=== PATIENT | female | born 1945 | race Caucasian/White ===

== ENCOUNTER 2018-05-03 22:16 | Inpatient (IN) | payer MEDICARE, BC ==
[2018-05-03] MEDS ORDERED: NACL 0.9% 3 ML SYG IV (23:30)
[2018-05-04 00:51] LABS: WHITE BLOOD COUNT 9.2 10^3/ul (4.8-10.8)
[2018-05-04 00:51] LABS: ADD MAN DIFF? NO; BASOPHILS % 0.3 % (0.0-2.0); EOSINOPHILS # 0.2 10^3/ul (0.0-0.5); EOSINOPHILS % 2.3 % (0.0-7.0); HEMATOCRIT 22.9 % (37.0-47.0); HEMOGLOBIN 7.1 g/dl (12.0-16.0); LYMPHOCYTES # 2.6 10^3/ul (0.8-2.9); LYMPHOCYTES % 28.2 % (15.0-51.0); MEAN CORPUSCULAR HEMOGLOBIN 26.5 pg (29.0-33.0); MEAN CORPUSCULAR VOLUME 85.4 fl (82.0-101.0); MEAN PLATELET VOLUME 11.3 fl (7.4-10.4); MONOCYTE # 0.5 10^3/ul (0.3-0.9); MONOCYTES % 5.7 % (0.0-11.0); NEUTROPHIL # 5.8 10^3/ul (1.6-7.5); NEUTROPHILS % 63.3 % (39.0-77.0); PLATELET COUNT 251 10^3/UL (140-415); RED BLOOD COUNT 2.68 10^6/ul (4.20-5.40); RED CELL DISTRIBUTION WIDTH 15.9 % (11.5-14.5)
[2018-05-04 01:10] LABS: PHOSPHORUS 3.5 mg/dl (2.5-4.9)
[2018-05-04 01:11] LABS: ALANINE AMINOTRANSFERASE 30 IU/L (13-69); ALBUMIN 2.7 g/dl (3.3-4.9); ALBUMIN/GLOBULIN RATIO 1.03; ALKALINE PHOSPHATASE 48 IU/L (42-121); ANION GAP 9 (8-16); ASPARTATE AMINO TRANSFERASE 21 IU/L (15-46); BILIRUBIN,INDIRECT 0.5 mg/dl (0-1.1); BILIRUBIN,TOTAL 0.5 mg/dl (0.2-1.3); BLOOD UREA NITROGEN 28 mg/dl (7-20); CALCIUM 8.7 mg/dl (8.4-10.2); CARBON DIOXIDE 29 mmol/L (21-31); CHLORIDE 109 mmol/L (97-110); CREATININE 0.76 mg/dl (0.44-1.00); GLUCOSE 105 mg/dl (70-220); POTASSIUM 3.8 mmol/L (3.5-5.1); SODIUM 143 mmol/L (135-144); TOTAL PROTEIN 5.3 g/dl (6.1-8.1)
[2018-05-04 01:39] LABS: HEMOGLOBIN A1C 6.7 % (0-5.9)
[2018-05-04] MEDS: PANTOPRAZOLE 40 MG INJ IV ×3 (02:40→17:48)
[2018-05-04] MEDS: SUCRALFATE 1 GM TAB PO ×3 (02:40→22:06)
[2018-05-04 06:37] LABS: INR 1.02; PROTIME 13.5 Sec (11.9-14.9); PT RATIO 1.1
[2018-05-04 06:38] LABS: PARTIAL THROMBOPLASTIN TIME 25.9 Sec (23.0-35.0)
[2018-05-04 06:49] LABS: IRON 102 ug/dl (35-150)
[2018-05-04 06:58] LABS: % IRON SATURATION 32 % SAT (22-52); TOTAL IRON BINDING CAPACITY 323 ug/dl (241-421)
[2018-05-04 07:05] LABS: FREE T3 3.19 pg/ml (2.77-5.27); FREE T4 (FREE THYROXINE) 0.97 ng/dl (0.78-2.44)
[2018-05-04 07:08] LABS: FERRITIN 31.4 ng/ml (11.1-264.0)
[2018-05-04 07:15] LABS: ABNORMAL IP MESSAGE 1; HEMATOCRIT 21.9 % (37.0-47.0); MEAN CORPUSCULAR HEMOGLOBIN 26.7 pg (29.0-33.0); MEAN CORPUSCULAR HGB CONC 31.1 g/dl (32.0-37.0); MEAN CORPUSCULAR VOLUME 85.9 fl (82.0-101.0); MEAN PLATELET VOLUME 12.4 fl (7.4-10.4); RED BLOOD COUNT 2.55 10^6/ul (4.20-5.40); RED CELL DISTRIBUTION WIDTH 15.9 % (11.5-14.5)
[2018-05-04 07:15] LABS: WHITE BLOOD COUNT 7.7 10^3/ul (4.8-10.8)
[2018-05-04 07:29] LABS: PLATELET COUNT 181 10^3/UL (140-415); POSITIVE DIFF @See below
[2018-05-04 07:33] LABS: ADD MAN DIFF? YES; HEMOGLOBIN 6.8 g/dl (12.0-16.0)
[2018-05-04 07:51] LABS: ANISOCYTOSIS 1+ (0-0); BAND NEUTROPHILS #M 0.3 10^3/ul (0.0-0.6); BAND NEUTROPHILS % (M) 5 % (0-4); EOSINOPHILS % (M) 2 % (0-7); HYPOCHROMASIA 2+ (0-0); LYMPHOCYTES % (M) 40 % (15-51); MICROCYTOSIS 1+ (0-0); MONOCYTE #M 0.5 10^3/ul (0.3-0.9); MONOCYTES % (M) 7 % (0-11); MYELOCYTES % (M) 1 % (0-0); PLATELET ESTIMATE NORMAL; REACTIVE LYMPHOCYTES #M 0.3 10^3/ul (0.0-0.0); REACTIVE LYMPHOCYTES% (M) 5 % (0-0); SEG NEUT #M 3.1 10^3/ul (1.6-7.5); SEGMENTED NEUTROPHILS (M) % 40 % (39-77); SMUDGE%M 5 % (0-0)
[2018-05-04 08:01] LABS: PATH REVIEW? YES
[2018-05-04] MEDS: NIFEdipine (XL) 30 MG TAB PO (08:19)
[2018-05-04] MEDS ORDERED: NON-FORMULARY/PATIENT OWN MED (Carvedilol* 6.25 MG) PO (09:00)
[2018-05-04] MEDS: LOSARTAN 50 MG TAB PO (09:00)
[2018-05-04] MEDS ORDERED: NON-FORMULARY/PATIENT OWN MED (Olmesartan Medoxomil (Benicar) 40 MG) PO (09:00)
[2018-05-04] MEDS: SOD CHLORIDE 0.9% 250 ML IV* (09:12)
[2018-05-04] MEDS ORDERED: PROPOFOL 200 MG INJ (15:38)
[2018-05-04 17:00] LABS: ADD MAN DIFF? NO; BASOPHILS % 0.2 % (0.0-2.0); EOSINOPHILS # 0.2 10^3/ul (0.0-0.5); HEMATOCRIT 27.5 % (37.0-47.0); HEMOGLOBIN 8.5 g/dl (12.0-16.0); LYMPHOCYTES # 2.4 10^3/ul (0.8-2.9); LYMPHOCYTES % 26.4 % (15.0-51.0); MEAN CORPUSCULAR HEMOGLOBIN 26.8 pg (29.0-33.0); MEAN CORPUSCULAR HGB CONC 30.9 g/dl (32.0-37.0); MEAN CORPUSCULAR VOLUME 86.8 fl (82.0-101.0); MEAN PLATELET VOLUME 10.6 fl (7.4-10.4); MONOCYTE # 0.5 10^3/ul (0.3-0.9); MONOCYTES % 5.5 % (0.0-11.0); NEUTROPHIL # 5.9 10^3/ul (1.6-7.5); NEUTROPHILS % 65.5 % (39.0-77.0); PLATELET COUNT 264 10^3/UL (140-415); RED BLOOD COUNT 3.17 10^6/ul (4.20-5.40); RED CELL DISTRIBUTION WIDTH 15.5 % (11.5-14.5)
[2018-05-04 17:20] LABS: ANION GAP 10 (8-16); BLOOD UREA NITROGEN 26 mg/dl (7-20); CARBON DIOXIDE 29 mmol/L (21-31); CHLORIDE 109 mmol/L (97-110); GLUCOSE 98 mg/dl (70-220); POTASSIUM 3.8 mmol/L (3.5-5.1); SODIUM 144 mmol/L (135-144)
[2018-05-04] MEDS: PEG/ELECTROLYTES 4L BTL PO (17:48)
[2018-05-04] MEDS: PROPOFOL 40 ML (20:27)
[2018-05-04] MEDS: ATORVASTATIN 40 MG TAB PO (21:00)
[2018-05-05] MEDS: PANTOPRAZOLE 40 MG INJ IV ×2 (06:04→18:00)
[2018-05-05 06:56] LABS: ADD MAN DIFF? NO
[2018-05-05 06:59] LABS: WHITE BLOOD COUNT 8.4 10^3/ul (4.8-10.8)
[2018-05-05 06:59] LABS: BASOPHILS % 0.1 % (0.0-2.0); EOSINOPHILS # 0.2 10^3/ul (0.0-0.5); EOSINOPHILS % 2.5 % (0.0-7.0); HEMATOCRIT 22.2 % (37.0-47.0); HEMOGLOBIN 7.1 g/dl (12.0-16.0); LYMPHOCYTES # 2.1 10^3/ul (0.8-2.9); LYMPHOCYTES % 24.5 % (15.0-51.0); MEAN CORPUSCULAR HEMOGLOBIN 27.5 pg (29.0-33.0); MEAN PLATELET VOLUME 10.7 fl (7.4-10.4); MONOCYTE # 0.5 10^3/ul (0.3-0.9); MONOCYTES % 6.5 % (0.0-11.0); NEUTROPHIL # 5.5 10^3/ul (1.6-7.5); NEUTROPHILS % 66.2 % (39.0-77.0); PLATELET COUNT 218 10^3/UL (140-415); RED BLOOD COUNT 2.58 10^6/ul (4.20-5.40); RED CELL DISTRIBUTION WIDTH 15.8 % (11.5-14.5)
[2018-05-05 07:18] LABS: LACTIC ACID 0.6 mmol/L (0.5-2.0)
[2018-05-05 07:20] LABS: MAGNESIUM 1.9 mg/dl (1.7-2.5)
[2018-05-05 07:20] LABS: PHOSPHORUS 4.2 mg/dl (2.5-4.9)
[2018-05-05 11:17] LABS: HEMATOCRIT 26.5 % (37.0-47.0); HEMOGLOBIN 8.3 g/dl (12.0-16.0)
[2018-05-05] MEDS: PROPOFOL 60 ML (11:57)
[2018-05-05] MEDS: GLYCOPYRROLATE 0.4 MG INJ (11:57)
[2018-05-05] MEDS: SOD CHLORIDE 0.9% 1,000 ML IV (13:23)
[2018-05-05] MEDS: SUCRALFATE 1 GM TAB PO ×2 (13:31→20:19)
[2018-05-05] MEDS: LOSARTAN 50 MG TAB PO (13:32)
[2018-05-05] MEDS: EZETIMIBE 10 MG TAB PO (13:32)
[2018-05-05] MEDS: NIFEdipine (XL) 30 MG TAB PO (13:32)
[2018-05-05] MEDS: ATORVASTATIN 40 MG TAB PO (20:18)
[2018-05-06] MEDS: SOD CHLORIDE 0.9% 1,000 ML IV (01:18)
[2018-05-06 01:26] LABS: HEMATOCRIT 23.2 % (37.0-47.0); HEMOGLOBIN 7.4 g/dl (12.0-16.0)
[2018-05-06 02:58] LABS: IMMEDIATE SPIN CROSSMATCH 1 3
[2018-05-06] MEDS: PANTOPRAZOLE 40 MG INJ IV ×2 (06:12→17:33)
[2018-05-06 07:01] LABS: ADD MAN DIFF? NO
[2018-05-06 07:03] LABS: WHITE BLOOD COUNT 10.1 10^3/ul (4.8-10.8)
[2018-05-06 07:03] LABS: BASOPHILS % 0.1 % (0.0-2.0); EOSINOPHILS # 0.2 10^3/ul (0.0-0.5); EOSINOPHILS % 2.1 % (0.0-7.0); HEMATOCRIT 26.3 % (37.0-47.0); HEMOGLOBIN 8.4 g/dl (12.0-16.0); LYMPHOCYTES # 1.9 10^3/ul (0.8-2.9); LYMPHOCYTES % 18.9 % (15.0-51.0); MEAN CORPUSCULAR HEMOGLOBIN 28.1 pg (29.0-33.0); MEAN CORPUSCULAR HGB CONC 31.9 g/dl (32.0-37.0); MEAN PLATELET VOLUME 10.6 fl (7.4-10.4); MONOCYTE # 0.7 10^3/ul (0.3-0.9); NEUTROPHIL # 7.2 10^3/ul (1.6-7.5); NEUTROPHILS % 71.5 % (39.0-77.0); PLATELET COUNT 211 10^3/UL (140-415); RED BLOOD COUNT 2.99 10^6/ul (4.20-5.40)
[2018-05-06 07:25] LABS: ALANINE AMINOTRANSFERASE 20 IU/L (13-69); ALBUMIN 2.9 g/dl (3.3-4.9); ALKALINE PHOSPHATASE 47 IU/L (42-121); ANION GAP 7 (8-16); ASPARTATE AMINO TRANSFERASE 21 IU/L (15-46); BILIRUBIN,INDIRECT 0.6 mg/dl (0-1.1); BILIRUBIN,TOTAL 0.6 mg/dl (0.2-1.3); BLOOD UREA NITROGEN 14 mg/dl (7-20); CALCIUM 8.7 mg/dl (8.4-10.2); CARBON DIOXIDE 29 mmol/L (21-31); CHLORIDE 112 mmol/L (97-110); CREATININE 0.69 mg/dl (0.44-1.00); GLUCOSE 116 mg/dl (70-220); POTASSIUM 3.8 mmol/L (3.5-5.1); SODIUM 144 mmol/L (135-144); TOTAL PROTEIN 5.3 g/dl (6.1-8.1)
[2018-05-06 07:30] LABS: PHOSPHORUS 3.9 mg/dl (2.5-4.9)
[2018-05-06 07:30] LABS: MAGNESIUM 1.9 mg/dl (1.7-2.5)
[2018-05-06] MEDS: LOSARTAN 50 MG TAB PO (08:55)
[2018-05-06] MEDS: SUCRALFATE 1 GM TAB PO ×2 (08:55→20:21)
[2018-05-06] MEDS: EZETIMIBE 10 MG TAB PO (08:55)
[2018-05-06] MEDS: NIFEdipine (XL) 30 MG TAB PO (08:55)
[2018-05-06] MEDS: IOHEXOL 100 ML (10:40)
[2018-05-06] MEDS: SOD CHLORIDE 0.9% 100 ML (10:40)
[2018-05-06 12:31] LABS: HEMATOCRIT 30.1 % (37.0-47.0); HEMOGLOBIN 9.5 g/dl (12.0-16.0)
[2018-05-06 16:55] LABS: FOLATE > 20.0 ng/ml (2.8-20.0)
[2018-05-06 18:57] LABS: HEMATOCRIT 28.5 % (37.0-47.0); HEMOGLOBIN 9.1 g/dl (12.0-16.0)
[2018-05-06] MEDS: ATORVASTATIN 40 MG TAB PO (20:21)
[2018-05-07 01:53] LABS: HEMATOCRIT 24.6 % (37.0-47.0); HEMOGLOBIN 7.9 g/dl (12.0-16.0)
[2018-05-07 03:49] LABS: ADD MAN DIFF? NO
[2018-05-07 03:58] LABS: WHITE BLOOD COUNT 13.3 10^3/ul (4.8-10.8)
[2018-05-07 03:58] LABS: BASOPHILS % 0.1 % (0.0-2.0); EOSINOPHILS # 0.2 10^3/ul (0.0-0.5); EOSINOPHILS % 1.5 % (0.0-7.0); HEMATOCRIT 25.7 % (37.0-47.0); HEMOGLOBIN 8.3 g/dl (12.0-16.0); LYMPHOCYTES # 1.7 10^3/ul (0.8-2.9); LYMPHOCYTES % 12.9 % (15.0-51.0); MEAN CORPUSCULAR HEMOGLOBIN 28.8 pg (29.0-33.0); MEAN CORPUSCULAR HGB CONC 32.3 g/dl (32.0-37.0); MEAN CORPUSCULAR VOLUME 89.2 fl (82.0-101.0); MEAN PLATELET VOLUME 10.6 fl (7.4-10.4); MONOCYTE # 0.8 10^3/ul (0.3-0.9); MONOCYTES % 5.7 % (0.0-11.0); NEUTROPHIL # 10.6 10^3/ul (1.6-7.5); NEUTROPHILS % 79.4 % (39.0-77.0); PLATELET COUNT 217 10^3/UL (140-415); RED BLOOD COUNT 2.88 10^6/ul (4.20-5.40); RED CELL DISTRIBUTION WIDTH 16.4 % (11.5-14.5)
[2018-05-07 04:17] LABS: ANION GAP 8 (8-16); BLOOD UREA NITROGEN 20 mg/dl (7-20); CALCIUM 8.6 mg/dl (8.4-10.2); CARBON DIOXIDE 30 mmol/L (21-31); CHLORIDE 109 mmol/L (97-110); CREATININE 0.78 mg/dl (0.44-1.00); GLUCOSE 110 mg/dl (70-220); SODIUM 143 mmol/L (135-144)
[2018-05-07 04:19] LABS: MAGNESIUM 1.9 mg/dl (1.7-2.5)
[2018-05-07] MEDS: SOD CHLORIDE 0.9% 250 ML IV* (04:42)
[2018-05-07] MEDS: PANTOPRAZOLE 40 MG INJ IV ×2 (06:25→19:53)
[2018-05-07] MEDS: SUCRALFATE 1 GM TAB PO ×2 (08:09→20:59)
[2018-05-07] MEDS: EZETIMIBE 10 MG TAB PO (08:09)
[2018-05-07] MEDS: NIFEdipine (XL) 30 MG TAB PO (08:33)
[2018-05-07] MEDS: LOSARTAN 50 MG TAB PO (08:33)
[2018-05-07] MEDS: ACETAMINOPHEN 325 MG TAB PO (08:34)
[2018-05-07 10:04] LABS: AADO2 Arterial 243.2 mmHg (7.0-24.0); Allen Test ACCEPTAB; Arterial Base Excess 3.1 mmol/L (-3.0-3); Arterial Blood Gas Oxygen Sat 98.3 mmHG (95.0-100.0); Arterial COHb 0.4 % (0.0-3.0); Arterial Fraction of Oxyhgb 97.8 % (93.0-99.0); Arterial HCO3 27.7 mmol/L (22.0-26.0); Arterial MetHb 0.1 % (0.0-1.5); Arterial Total Hemglobin 8.9 g/dl (12.0-18.0); Arterial pCO2 42.8 mmhg (35-45); MODE MASK - SIMPLE; Site Right Radial
[2018-05-07 10:55] LABS: HEMATOCRIT 24.4 % (37.0-47.0); HEMOGLOBIN 7.8 g/dl (12.0-16.0)
[2018-05-07 11:12] LABS: LACTIC ACID 1.5 mmol/L (0.5-2.0)
[2018-05-07] MEDS: DEXTROSE 5% 1,000 ML IV (13:02)
[2018-05-07] MEDS ORDERED: traMADol 50 MG TAB PO (16:00)
[2018-05-07] MEDS ORDERED: PROPOFOL 20 ML ×2 (17:48→18:29)
[2018-05-07] MEDS ORDERED: FENTAnyl 50 MCG/ML VIAL (17:48)
[2018-05-07] MEDS ORDERED: GLUCAGON 1 MG INJ (18:17)
[2018-05-07 20:23] LABS: HEMATOCRIT 26.2 % (37.0-47.0); HEMOGLOBIN 8.3 g/dl (12.0-16.0)
[2018-05-07] MEDS: ATORVASTATIN 40 MG TAB PO (20:59)
[2018-05-08] MEDS: DEXTROSE 5% 1,000 ML IV (03:18)
[2018-05-08] MEDS: PANTOPRAZOLE 40 MG INJ IV ×2 (05:52→17:35)
[2018-05-08 06:41] LABS: ADD MAN DIFF? NO
[2018-05-08 06:44] LABS: BASOPHILS % 0.1 % (0.0-2.0); EOSINOPHILS # 0.2 10^3/ul (0.0-0.5); EOSINOPHILS % 1.8 % (0.0-7.0); HEMATOCRIT 25.3 % (37.0-47.0); HEMOGLOBIN 7.8 g/dl (12.0-16.0); LYMPHOCYTES # 1.9 10^3/ul (0.8-2.9); LYMPHOCYTES % 21.9 % (15.0-51.0); MEAN CORPUSCULAR HEMOGLOBIN 27.7 pg (29.0-33.0); MEAN CORPUSCULAR HGB CONC 30.8 g/dl (32.0-37.0); MEAN CORPUSCULAR VOLUME 89.7 fl (82.0-101.0); MEAN PLATELET VOLUME 10.7 fl (7.4-10.4); MONOCYTE # 0.7 10^3/ul (0.3-0.9); MONOCYTES % 7.8 % (0.0-11.0); NEUTROPHIL # 5.9 10^3/ul (1.6-7.5); NEUTROPHILS % 68.2 % (39.0-77.0); PLATELET COUNT 194 10^3/UL (140-415); RED BLOOD COUNT 2.82 10^6/ul (4.20-5.40); RED CELL DISTRIBUTION WIDTH 17.1 % (11.5-14.5)
[2018-05-08 06:44] LABS: WHITE BLOOD COUNT 8.7 10^3/ul (4.8-10.8)
[2018-05-08 07:17] LABS: ANION GAP 6 (8-16); BLOOD UREA NITROGEN 18 mg/dl (7-20); CALCIUM 8.6 mg/dl (8.4-10.2); CARBON DIOXIDE 31 mmol/L (21-31); CHLORIDE 110 mmol/L (97-110); CREATININE 0.78 mg/dl (0.44-1.00); GLUCOSE 142 mg/dl (70-220); POTASSIUM 3.5 mmol/L (3.5-5.1); SODIUM 143 mmol/L (135-144)
[2018-05-08] MEDS: SOD CHLORIDE 0.9% 250 ML IV* (08:21)
[2018-05-08 08:22] LABS: IMMEDIATE SPIN CROSSMATCH 1 3
[2018-05-08] MEDS: EZETIMIBE 10 MG TAB PO (08:22)
[2018-05-08] MEDS: SUCRALFATE 1 GM TAB PO ×2 (08:22→20:48)
[2018-05-08] MEDS: NIFEdipine (XL) 30 MG TAB PO (08:23)
[2018-05-08] MEDS: LOSARTAN 50 MG TAB PO (08:23)
[2018-05-08 14:14] LABS: HEMATOCRIT 30.9 % (37.0-47.0)
[2018-05-08] MEDS: ATORVASTATIN 40 MG TAB PO (20:48)
[2018-05-08 22:34] LABS: HEMATOCRIT 28.5 % (37.0-47.0); HEMOGLOBIN 9.2 g/dl (12.0-16.0)
[2018-05-09 06:10] LABS: ADD MAN DIFF? NO
[2018-05-09] MEDS: PANTOPRAZOLE 40 MG INJ IV ×2 (06:16→17:11)
[2018-05-09 06:24] LABS: BASOPHILS % 0.1 % (0.0-2.0); EOSINOPHILS # 0.3 10^3/ul (0.0-0.5); EOSINOPHILS % 3.4 % (0.0-7.0); HEMATOCRIT 26.2 % (37.0-47.0); HEMOGLOBIN 8.5 g/dl (12.0-16.0); LYMPHOCYTES # 1.9 10^3/ul (0.8-2.9); LYMPHOCYTES % 21.8 % (15.0-51.0); MEAN CORPUSCULAR HEMOGLOBIN 28.8 pg (29.0-33.0); MEAN CORPUSCULAR HGB CONC 32.4 g/dl (32.0-37.0); MEAN CORPUSCULAR VOLUME 88.8 fl (82.0-101.0); MEAN PLATELET VOLUME 10.6 fl (7.4-10.4); MONOCYTE # 0.7 10^3/ul (0.3-0.9); MONOCYTES % 8.3 % (0.0-11.0); NEUTROPHIL # 5.6 10^3/ul (1.6-7.5); PLATELET COUNT 191 10^3/UL (140-415); RED BLOOD COUNT 2.95 10^6/ul (4.20-5.40); RED CELL DISTRIBUTION WIDTH 17.1 % (11.5-14.5)
[2018-05-09 06:24] LABS: WHITE BLOOD COUNT 8.5 10^3/ul (4.8-10.8)
[2018-05-09 07:01] LABS: ANION GAP 7 (8-16); BLOOD UREA NITROGEN 19 mg/dl (7-20); CALCIUM 8.5 mg/dl (8.4-10.2); CARBON DIOXIDE 31 mmol/L (21-31); CHLORIDE 109 mmol/L (97-110); CREATININE 0.83 mg/dl (0.44-1.00); GLUCOSE 121 mg/dl (70-220); POTASSIUM 3.8 mmol/L (3.5-5.1); SODIUM 143 mmol/L (135-144)
[2018-05-09] MEDS: SUCRALFATE 1 GM TAB PO ×2 (08:08→22:18)
[2018-05-09] MEDS: EZETIMIBE 10 MG TAB PO (08:08)
[2018-05-09] MEDS: LOSARTAN 50 MG TAB PO (08:16)
[2018-05-09] MEDS: NIFEdipine (XL) 30 MG TAB PO (08:16)
[2018-05-09 13:27] LABS: RETICULOCYTE COUNT % 3.3 % (0.5-1.5)
[2018-05-09 13:27] LABS: RETICULOCYTE RBC 3.33
[2018-05-09 13:45] LABS: URIC ACID 3.3 mg/dl (3.1-7.9)
[2018-05-09 13:45] LABS: LACTATE DEHYDROGENASE 434 IU/L (313-618)
[2018-05-09 14:41] LABS: ERYTHROCYTE SEDIMENTATION RATE 23 mm/Hr (0-30)
[2018-05-09 14:51] LABS: FOLATE 18.6 ng/ml (2.8-20.0)
[2018-05-09] MEDS ORDERED: CLARITHROMYCIN 250 MG TAB PO (21:00)
[2018-05-09] MEDS: ATORVASTATIN 40 MG TAB PO (22:18)
[2018-05-09] MEDS: metroNIDAZOLE 250 MG TAB GTB (22:20)
[2018-05-09] MEDS: CLARITHROMYCIN 500 MG TAB PO (22:20)
[2018-05-09] MEDS: SILVER SULFADIAZINE 1% 25 GM CR TOP (23:49)
[2018-05-10 00:01] LABS: OCCULT BLOOD STOOL POSITIVE (NEGATIVE)
[2018-05-10 05:56] LABS: PROTEIN, TOTAL 5.6 g/dL (6.1-8.1)
[2018-05-10] MEDS: PANTOPRAZOLE 40 MG INJ IV (06:00)
[2018-05-10 06:29] LABS: ADD MAN DIFF? NO
[2018-05-10 06:32] LABS: BASOPHILS % 0.1 % (0.0-2.0); EOSINOPHILS # 0.3 10^3/ul (0.0-0.5); EOSINOPHILS % 3.7 % (0.0-7.0); HEMATOCRIT 27.2 % (37.0-47.0); HEMOGLOBIN 8.7 g/dl (12.0-16.0); LYMPHOCYTES # 1.6 10^3/ul (0.8-2.9); LYMPHOCYTES % 18.7 % (15.0-51.0); MEAN CORPUSCULAR HEMOGLOBIN 28.5 pg (29.0-33.0); MEAN CORPUSCULAR VOLUME 89.2 fl (82.0-101.0); MEAN PLATELET VOLUME 10.7 fl (7.4-10.4); MONOCYTE # 0.6 10^3/ul (0.3-0.9); MONOCYTES % 7.2 % (0.0-11.0); NEUTROPHILS % 69.7 % (39.0-77.0); PLATELET COUNT 190 10^3/UL (140-415); RED BLOOD COUNT 3.05 10^6/ul (4.20-5.40); RED CELL DISTRIBUTION WIDTH 16.4 % (11.5-14.5)
[2018-05-10 06:32] LABS: WHITE BLOOD COUNT 8.6 10^3/ul (4.8-10.8)
[2018-05-10] MEDS: metroNIDAZOLE 250 MG TAB GTB ×2 (06:54→14:43)
[2018-05-10] MEDS: PANTOPRAZOLE (EC) 40 MG TAB PO (06:55)
[2018-05-10 07:10] LABS: ANION GAP 8 (8-16); BLOOD UREA NITROGEN 18 mg/dl (7-20); CALCIUM 8.5 mg/dl (8.4-10.2); CARBON DIOXIDE 29 mmol/L (21-31); CHLORIDE 108 mmol/L (97-110); CREATININE 0.72 mg/dl (0.44-1.00); GLUCOSE 113 mg/dl (70-220); POTASSIUM 3.7 mmol/L (3.5-5.1); SODIUM 141 mmol/L (135-144)
[2018-05-10] MEDS: NIFEdipine (XL) 30 MG TAB PO (09:00)
[2018-05-10] MEDS: EZETIMIBE 10 MG TAB PO (09:07)
[2018-05-10] MEDS: CLARITHROMYCIN 500 MG TAB PO (09:07)
[2018-05-10] MEDS: SUCRALFATE 1 GM TAB PO (09:07)
[2018-05-10] MEDS: LOSARTAN 50 MG TAB PO (09:08)
[2018-05-10] MEDS: SILVER SULFADIAZINE 1% 25 GM CR TOP (09:09)
[2018-05-10 10:31] LABS: HAPTOGLOBIN 177 mg/dL (43-212)
[2018-05-10 16:37] LABS: ALBUMIN 3.1 g/dL (3.8-4.8); ALPHA-1-GLOBULINS 0.4 g/dL (0.2-0.3); ALPHA-2-GLOBULINS 0.7 g/dL (0.5-0.9); BETA 2 GLOBULINS 0.3 g/dL (0.2-0.5); BETA GLOBULINS 0.4 g/dL (0.4-0.6); GAMMA GLOBULINS 0.7 g/dL (0.8-1.7)
[2018-05-12 00:12] LABS: ERYTHROPOIETIN 32.6 mIU/mL (2.6-18.5)
== END 2018-05-10 16:40 | disposition home health service (06) | DRG 378 ==
LOC: TEL 22:16
PROVIDERS: Family Medicine
PROC: 0W3P8ZZ Control Bleeding in Gastrointestinal Tract, Via Natural or Artificial Opening Endoscopic (ICD-10-PCS; principal; 2018-05-04 14:25)
PROC: 0DB98ZX Excision of Duodenum, Via Natural or Artificial Opening Endoscopic, Diagnostic (ICD-10-PCS; 2018-05-04 14:25)
PROC: 0DB68ZX Excision of Stomach, Via Natural or Artificial Opening Endoscopic, Diagnostic (ICD-10-PCS; 2018-05-04 14:25)
PROC: 0DBP8ZX Excision of Rectum, Via Natural or Artificial Opening Endoscopic, Diagnostic (ICD-10-PCS; 2018-05-04 14:25)
PROC: 30233N1 Transfusion of Nonautologous Red Blood Cells into Peripheral Vein, Percutaneous Approach (ICD-10-PCS; 2018-05-04 14:25)
DX: K26.4 Chronic or unspecified duodenal ulcer with hemorrhage (principal); D62 Acute posthemorrhagic anemia; K25.9 Gastric ulcer, unspecified as acute or chronic, without hemorrhage or perforation; I10 Essential (primary) hypertension; E78.5 Hyperlipidemia, unspecified; K21.9 Gastro-esophageal reflux disease without esophagitis; E66.9 Obesity, unspecified; K57.30 Diverticulosis of large intestine without perforation or abscess without bleeding; K62.1 Rectal polyp; K64.4 Residual hemorrhoidal skin tags; K57.90 Diverticulosis of intestine, part unspecified, without perforation or abscess without bleeding; Z68.38 Body mass index [BMI] 38.0-38.9, adult; Z86.73 Personal history of transient ischemic attack (TIA), and cerebral infarction without residual deficits
CPT/HCPCS: 36430; 36600; 70450; 70551; 71045; 72100; 75635; 78278; 80048; 80053; 82270; 82306; 82607; 82668; 82728; 82746; 82803; 82962; 83010; 83036; 83540; 83605; 83615; 83735; 84100; 84155; 84165; 84439; 84443; 84481; 84560; 85014; 85018; 85025; 85045; 85610; 85651; 85730; 86850; 86900; 86901; 86920; 87040; 87070; 87081; 87086; 88305; 88312; 93005; 93306; 93880

== ENCOUNTER 2018-06-01 06:19 | Day surgery (SDC) | payer MEDICARE, BC ==
[2018-06-01] MEDS ORDERED: PROPOFOL 40 ML (07:40)
[2018-06-01] MEDS ORDERED: LIDOCAINE 100 MG SYRINGE (07:40)
== END 2018-06-01 12:27 | disposition home or self-care (01) ==
LOC: GIL 06:19
DX: K29.50 Unspecified chronic gastritis without bleeding (principal); K44.9 Diaphragmatic hernia without obstruction or gangrene; I10 Essential (primary) hypertension; E66.9 Obesity, unspecified; Z68.41 Body mass index [BMI] 40.0-44.9, adult
CPT/HCPCS: 43239; 88305; 88312